=== PATIENT | female | born 1990 | race Asian ===

== ENCOUNTER 2017-05-12 13:47 | Emergency (ER) | payer BC, OTHER ==
[~2017-05-12] VITALS: Ht 160 cm; Wt 96.4 kg
[2017-05-12 13:49] VITALS: Ht 160 cm; Wt 96.4 kg
[2017-05-12] MEDS ORDERED: ALBUT/IPRATROP 3MG/0.5MG NEB 3 ML VIAL INH STA ×2 (14:01→14:43)
[2017-05-12] MEDS ORDERED: METHYLPREDNISOLONE 125 MG VIAL IV STA (14:01)
--- NOTE | 2017-05-12 14:08 | EMERGENCY ROOM VISIT NOTE ---
History First contact with patient: 13:55 Chief Complaint: RESPIRATORY PROBLEMS Stated Complaint: CHEST TIGHTNESS & PAIN & SHOB (MEDS NOT WORKIN) Nursing Triage Summary: pt having excerbated asthma attack started last night dry and tightness in chest used neb at home no relief History of Present Illness The patient is a 26 year old female who presents to the Emergency Room via private vehicle with complaints of "chest tightness and pain, shortness of breath and her medications are not working". The patient states she has a history of asthma which she uses Ventolin, nebulizer and Advair discus for. She states that while at work at 1:30 AM this past evening she was exerting herself and was around closed when she developed shortness of breath and chest tightness. She states she is her nebulizer at home without relief. She states that she had a similar episode 1.5 months ago however this one is much worse now she has pain in her back as well. She states that when she laid down the cough became much worse. She denies any chance of . She rates her overall pain as a 9/10. Review of Systems A complete 10-point Review of Systems was discussed with the patient, with pertinent positives and negatives listed in the History of Present Illness. All remaining Review of Systems questions can be considered negative unless otherwise specified. Past Medical/Surgical History Medical Problems: (1) ASTHMA, UNSPECIFIED (2) Tonsillectomy Social History Smoking Status: Never Smoker Alcohol Use: occasionally Marital Status: single Housing Status: lives with family Occupation Status: employed, [employer] student Current/Historical Medications Scheduled Albuterol Hfa (Ventolin Hfa), 2-4 PUFFS INH Q6H Azithromycin (Zithromax), 250 MG PO DAILY Fluticasone Prop/Salmeterol (Advair Diskus 100/50 60 Dose), 1 PUFF INH BID Ipratropium-Albuterol (Duoneb), 1 TREATMENT INH Q4H Prednisone (Prednisone), 0 PO DAILY Physical Exam Vital Signs Date Time Temp Pulse Resp B/P (MAP) Pulse Ox O2 Delivery O2 Flow Rate FiO2 05/12/17 17:46 112 05/12/17 16:51 108 18 118/98 95 Room Air 05/12/17 16:28 116 22 131/108 95 Room Air 05/12/17 15:15 20 98 Room Air 05/12/17 15:11 110 12/28/17 15:04 98 Room Air 05/12/17 15:03 118 28 98 Room Air 05/12/17 13:49 36.6 132 28 167/102 93 Room Air Physical Exam VITAL SIGNS - Vital signs and nursing notes were reviewed. Tachycardic and saturating on room air 93%. Respiratory rate increased at 28. GENERAL -26-year-old female appearing her stated age who is in no acute distress. She is sitting upright in bed hunched over. When she communicates it is an abbreviated sentences. Communicates well with provider and answers questions appropriately. SKIN - Without rashes. HEAD - NC/AT. EYES - PERRL with EOMI bilaterally. Sclera anicteric. EARS - No deformities of external structures noted on gross examination bilaterally. No pain elicited with palpation of the tragus bilaterally. External auditory canals without discharge or otorrhea. Tympanic membranes pearly carreon without retraction or bulging. No fluid or purulent material visualized behind the TM. Handle of malleus, umbo, cone of light, pars tensa/ flaccid all easily visualized. NOSE - Midline and without cyanosis. No epistaxis or purulent drainage noted. MOUTH/OROPHARYNX - Without perioral cyanosis. Buccal mucosa pink and moist and without leukoplakia. Tongue midline with equal elevation of palate bilaterally. No tonsillar hypertrophy, erythema, or exudates noted. Fair dentition noted. NECK - Neck with FROM. No rigidity. LUNGS - Chest wall symmetric without accessory muscle use, intercostals retractions, or central cyanosis. Diffuse inspiratory and expiratory wheezes noted bilaterally. CARDIAC - RRR with S1/S2. No murmur, rubs, or gallops appreciated. Medical Decision & Procedures ER Provider Diagnostic Interpretation: SINGLE VIEW CHEST CLINICAL HISTORY: Dyspnea. FINDINGS: An AP, portable, upright chest radiograph is compared to study dated 05/21/2012. The examination is degraded by portable technique and patient rotation. The cardiomediastinal silhouette is unremarkable. The lungs and pleural spaces are clear. No pneumothorax is seen. The bony thorax is grossly intact. IMPRESSION: No active disease in the chest. Electronically signed by: Mike Bird M.D. 05/12/2017 2:21 PM Dictated Date/Time: 05/12/2017 2:20 PM (CHEST FOR PE) ANGIO WITH CT DOSE: 585.28 mGycm HISTORY: Chest pain dyspnea TECHNIQUE: Multiaxial CT images of the chest were performed following the intravenous administration of contrast to evaluate the pulmonary arteries. Maximal intensity projection images were also obtained. A dose lowering technique was utilized adhering to the principles of ALARA. COMPARISON STUDY: 04/20/2011 FINDINGS: There is a normal caliber thoracic aorta with no evidence for dissection. There is no evidence for pulmonary embolus. No pleural effusions. No pneumothorax. The liver and spleen are unremarkable. No mediastinal or hilar lymphadenopathy. The central airways are patent. The lungs are clear. Trace interstitial change of the medial upper lobe regions primarily on the right. IMPRESSION: No evidence for pulmonary embolus. Possible minimal low-grade pneumonitis medial upper lobe regions The above report was generated using voice recognition software. It may contain grammatical, syntax or spelling errors. Electronically signed by: Ronn Hernandez M.D. 05/12/2017 3:12 PM Dictated Date/Time: 05/12/2017 3:07 PM Laboratory Results 05/12/17 14:10 Red Blood Count 5.77, Mean Corpuscular Volume 79.4, Mean Corpuscular Hemoglobin 27.6, Mean Corpuscular Hemoglobin Concent 34.7, Mean Platelet Volume 8.8, Neutrophils (%) (Auto) 65.3, Lymphocytes (%) (Auto) 14.7, Monocytes (%) (Auto) 5.9, Eosinophils (%) (Auto) 13.3, Basophils (%) (Auto) 0.6, Neutrophils # (Auto ) 8.75, Lymphocytes # (Auto) 1.97, Monocytes # (Auto) 0.79, Eosinophils # (Auto ) 1.78, Basophils # (Auto) 0.08 05/12/17 14:10 Test 05/12/17 14:10 05/12/17 14:16 05/12/17 16:40 White Blood Count 13.40 K/uL (4.8-10.8) Red Blood Count 5.77 M/uL (4.2-5.4) Hemoglobin 15.9 g/dL (12.0-16.0) Hematocrit 45.8 % (37-47) Mean Corpuscular Volume 79.4 fL (80-100) Mean Corpuscular Hemoglobin 27.6 pg (25-34) Mean Corpuscular Hemoglobin Concent 34.7 g/dl (32-36) Platelet Count 352 K/uL (130-400) Mean Platelet Volume 8.8 fL (7.4-10.4) Neutrophils (%) (Auto) 65.3 % Lymphocytes (%) (Auto) 14.7 % Monocytes (%) (Auto) 5.9 % Eosinophils (%) (Auto) 13.3 % Basophils (%) (Auto) 0.6 % Neutrophils # (Auto) 8.75 K/uL (1.4-6.5) Lymphocytes # (Auto) 1.97 K/uL (1.2-3.4) Monocytes # (Auto) 0.79 K/uL (0.11-0.59) Eosinophils # (Auto) 1.78 K/uL (0-0.5) Basophils # (Auto) 0.08 K/uL (0-0.2) RDW Standard Deviation 41.5 fL (36.4-46.3) RDW Coefficient of Variation 14.4 % (11.5-14.5) Immature Granulocyte % (Auto) 0.2 % Immature Granulocyte # (Auto) 0.03 K/uL (0.00-0.02) Anion Gap 9.0 mmol/L (3-11) Est Creatinine Clear Calc Drug Dose 133.8 ml/min Estimated GFR () 137.2 Estimated GFR (Non- 118.4 BUN/Creatinine Ratio 23.4 (10-20) Calcium Level 9.6 mg/dl (8.5-10.1) Magnesium Level 2.2 mg/dl (1.8-2.4) Total Bilirubin 0.6 mg/dl (0.2-1) Aspartate Amino Transf (AST/SGOT) 21 U/L (15-37) Alanine Aminotransferase (ALT/SGPT) 22 U/L (12-78) Alkaline Phosphatase 98 U/L (45-117) Troponin I < 0.015 ng/ml (0-0.045) Total Protein 8.7 gm/dl (6.4-8.2) Albumin 4.3 gm/dl (3.4-5.0) Globulin 4.4 gm/dl (2.5-4.0) Albumin/Globulin Ratio 1.0 (0.9-2) Bedside D-Dimer > 450 ng/mlFEU (0-450) Urine Test NEG (NEG) Medications Administered Medications (Trade) Dose Ordered Sig/Melissa Route Start Time Stop Time Status Last Admin Dose Admin Albuterol/ Ipratropium (Duoneb) 3 ml NOW STAT INH 05/12/17 14:01 05/12/17 14:04 DC 05/12/17 14:23 3 ML Methylprednisolone Sodium Succinate (Solu-Medrol IV) 125 mg NOW STAT IV 05/12/17 14:01 05/12/17 14:04 DC 05/12/17 14:01 125 MG Albuterol/ Ipratropium (Duoneb) 12 ml ONE STAT INH 05/12/17 14:43 05/12/17 14:45 DC 05/12/17 14:58 12 ML Sodium Chloride 500 ml @ 999 mls/hr Q31M STAT IV 05/12/17 16:56 05/12/17 17:26 DC 05/12/17 17:06 999 MLS/HR Azithromycin (Zithromax Tab) 500 mg NOW STAT PO 05/12/17 16:56 05/12/17 16:57 DC 05/12/17 17:16 500 MG Medical Decision Patient was seen and evaluated as above. She presents to us today with what appears to be an asthma exacerbation. She is dyspneic upon conversation. Bedside EKG reveals sinus tachycardia rate of 121 bpm. 18-gauge IV access was initiated, and the above workup was performed. D-dimer high and with a negative chest x-ray CT scan of the chest was obtained. No PE. Low-grade pneumonitis suspected. I suspect she likely has an asthma exacerbation therefore was given a DuoNeb 15 minutes and without relief was then given 1 hour. She was reevaluated and feeling better. She was also given 125 mg of Solu-Medrol intravenously. She was given 500 mL of normal saline secondary to her persistent tachycardia which I believe is probably secondary to the amount of breathing treatments she received. She was no longer conversationally dyspneic and was able to have a calm and regular conversation. She was offered inpatient management secondary to her asthma however preferred to go home. Case was discussed with the attending physician and the decision was made to treat her with azithromycin for the pneumonitis, as well as her to use the nebulizers at home, her Ventolin inhaler as well as a course of prednisone taper. She is to follow with the family doctor which she is currently establishing. I do not suspect CA or PE after today's workup. CBC reveals leukocytosis at 13.4. Red blood cell count actually high at 5.77. D-dimer elevated. Chem panel reveals no emergent process. Troponin negative. Urine test is also negative. The patient is to return with worsening and follow with her family doctor for further evaluation and management. I suspect this could also be because her Advair that she was taking for many years she discontinued due to its cost. She was educated upon management, educated upon worrisome symptoms which to return, had questions about discharge, and was discharged home in good condition. In the evaluation and treatment of this patient the following differential diagnoses were entertained: CA, PE, pneumonia, asthma exacerbation, COPD, pneumonitis, peritonitis, pleural effusion, among others. Impression Primary Impression: Asthma exacerbation Departure Information Dispostion Home / Self-Care Condition GOOD Prescriptions Azithromycin (ZITHROMAX) 250 Mg Tab 250 MG PO DAILY, #4 TAB Prov: Chip Angeles PA-C 05/12/17 Prednisone (Prednisone) 20 Mg Tab 0 PO DAILY, #18 TAB 3 DAILY FOR 3 DAYS, THEN 2 DAILY FOR 3 DAYS, THEN 1 DAILY FOR 3 DAYS. Prov: Chip Angeles PA-C 05/12/17 Patient Instructions My [facility] Additional Instructions You were seen in the emergency department for your shortness of breath. You were prescribed Azithromycin to be taken daily, next dose tomorrow around 6pm. This is an antibiotic. All antibiotics have the potential to cause diarrhea. Stop this medication and contact a medical provider if you were to develop any significant adverse side effects including: wheezing, shortness of breath, passing out, vomiting, or a diffuse rash. Always take antibiotics as directed and COMPLETE the ENTIRE course regardless of the improvement of your symptoms. You have been prescribed Prednisone taken orally once a day for the next few days. This is an anti-inflammatory medicine to be used to help minimize your symptoms. You should take the COMPLETE course of the medication. For pain and fever control, you can use the following [id number] medicines (if >12 yo): - Regular strength (325mg/tab) Tylenol (acetaminophen) 2 tabs every 4-6 hours as needed. Do not exceed 12 tablets in a 24 hour period. Avoid taking more than 3 grams (3000 mg) of Tylenol per day. This includes any other sources of acetaminophen you may take on a regular basis. - Regular strength (200 mg/tab) Advil (ibuprofen) 1-2 tabs every 4-6 hours as needed. Do not exceed a dose of 3200 mg per day. - For best results, alternate dosing of Tylenol and Advil. In addition to your prescribed medications, you can also use the following home remedies: - Warm salt-water gargles 3 times per day can soothe your throat and help to fight infection. Return to the emergency department if your symptoms persist or worsen over the next 2-3 days despite treatment course outlined above. Return to the emergency department if you develop the following symptoms of: inability to swallow solids , liquids, or drool; excessive wheezing or inability to catch your breath; or intractable fever or pain. Follow up with your primary care provider in 2-3 days from today's emergency department visit. (CHEST FOR PE) ANGIO WITH CT DOSE: 585.28 mGycm HISTORY: Chest pain dyspnea TECHNIQUE: Multiaxial CT images of the chest were performed following the intravenous administration of contrast to evaluate the pulmonary arteries. Maximal intensity projection images were also obtained. A dose lowering technique was utilized adhering to the principles of ALARA. COMPARISON STUDY: 04/20/2011 FINDINGS: There is a normal caliber thoracic aorta with no evidence for dissection. There is no evidence for pulmonary embolus. No pleural effusions. No pneumothorax. The liver and spleen are unremarkable. No mediastinal or hilar lymphadenopathy. The central airways are patent. The lungs are clear. Trace interstitial change of the medial upper lobe regions primarily on the right.
[2017-05-12 14:22] LABS: BASO % 0.6 %; BASO ABS # 0.08 K/uL (0-0.2); EOS % 13.3 %; EOS ABS # 1.78 K/uL (0-0.5); HEMATOCRIT 45.8 % (37-47); HEMOGLOBIN 15.9 g/dL (12.0-16.0); IG# 0.03 K/uL (0.00-0.02); LYMPH % 14.7 %; LYMPH ABS # 1.97 K/uL (1.2-3.4); MEAN CELL VOLUME 79.4 fL (80-100); MEAN CORPUSCULAR HEMOGLOBIN 27.6 pg (25-34); MEAN CORPUSCULAR HGB CONC 34.7 g/dl (32-36); MEAN PLATELET VOLUME 8.8 fL (7.4-10.4); MONO % 5.9 %; MONO ABS # 0.79 K/uL (0.11-0.59); NEUT % 65.3 %; NEUT ABS # 8.75 K/uL (1.4-6.5); PLATELET COUNT 352 K/uL (130-400); RED CELL DISTRIBUTION WIDTH CV 14.4 % (11.5-14.5); RED CELL DISTRIBUTION WIDTH SD 41.5 fL (36.4-46.3)
--- NOTE | 2017-05-12 14:22 | DIAGNOSTIC IMAGING REPORT ---
SINGLE VIEW CHEST CLINICAL HISTORY: Dyspnea. FINDINGS: An AP, portable, upright chest radiograph is compared to study dated 05/21/2012. The examination is degraded by portable technique and patient rotation. The cardiomediastinal silhouette is unremarkable. The lungs and pleural spaces are clear. No pneumothorax is seen. The bony thorax is grossly intact. IMPRESSION: No active disease in the chest. Electronically signed by: Mike Bird M.D. 05/12/2017 2:21 PM Dictated Date/Time: 05/12/2017 2:20 PM
[2017-05-12 14:38] LABS: ALBUMIN 4.3 gm/dl (3.4-5.0); ALT/SGPT 22 U/L (12-78); BLOOD UREA NITROGEN 17 mg/dl (7-18); CALCIUM 9.6 mg/dl (8.5-10.1); CARBON DIOXIDE 26 mmol/L (21-32); CREATININE 0.71 mg/dl (0.60-1.20); GLUCOSE 91 mg/dl (70-99); POTASSIUM 4.1 mmol/L (3.5-5.1); SODIUM 136 mmol/L (136-145)
[2017-05-12 14:42] LABS: ALKALINE PHOSPHATASE 98 U/L (45-117); AST/SGOT 21 U/L (15-37); TOTAL PROTEIN 8.7 gm/dl (6.4-8.2)
[2017-05-12] MEDS ORDERED: OPTIRAY 320 IV PRN (15:00)
[2017-05-12 15:03] VITALS: PULSE 118; O2SAT 98
[2017-05-12 15:04] VITALS: O2SAT 98
--- NOTE | 2017-05-12 15:13 | DIAGNOSTIC IMAGING REPORT ---
(CHEST FOR PE) ANGIO WITH CT DOSE: 585.28 mGycm HISTORY: Chest pain dyspnea TECHNIQUE: Multiaxial CT images of the chest were performed following the intravenous administration of contrast to evaluate the pulmonary arteries. Maximal intensity projection images were also obtained. A dose lowering technique was utilized adhering to the principles of ALARA. COMPARISON STUDY: 04/20/2011 FINDINGS: There is a normal caliber thoracic aorta with no evidence for dissection. There is no evidence for pulmonary embolus. No pleural effusions. No pneumothorax. The liver and spleen are unremarkable. No mediastinal or hilar lymphadenopathy. The central airways are patent. The lungs are clear. Trace interstitial change of the medial upper lobe regions primarily on the right. IMPRESSION: No evidence for pulmonary embolus. Possible minimal low-grade pneumonitis medial upper lobe regions The above report was generated using voice recognition software. It may contain grammatical, syntax or spelling errors. Electronically signed by: Ronn Hernandez M.D. 05/12/2017 3:12 PM Dictated Date/Time: 05/12/2017 3:07 PM
[2017-05-12] MEDS ORDERED: VNTHFA/IN INH (15:18)
[2017-05-12] MEDS ORDERED: ADVIN10/60 INH (15:18)
[2017-05-12] MEDS ORDERED: IPRA-64 INH (15:18)
[2017-05-12] MEDS ORDERED: AZITHROMYCIN 250 MG TAB PO STA (16:56)
[2017-05-12] MEDS ORDERED: SODIUM CHLORIDE 0.9% 500ML 500 ML IV STA (16:56)
[2017-05-12] MEDS ORDERED: AZIT-60 PO (16:58)
[2017-05-12] MEDS ORDERED: PRED20TA PO (16:58)
[2017-05-12 18:10] VITALS: BP 118/98; PULSE 94; TEMP 36.6; O2SAT 95
== END 2017-05-12 18:11 | disposition home or self-care (01) ==
LOC: C.EDB 13:49 → C.EDA 18:11
DX: J45.901 Unspecified asthma with (acute) exacerbation (principal); Z79.899 Other long term (current) drug therapy